=== PATIENT | female | born 1980 | race Caucasian/White ===

== ENCOUNTER 2021-10-06 10:36 | Outpatient (CLI) | payer BC ==
[2021-10-06 12:35] LABS: Hemoglobin 8.3 g/dL (12.0-15.5); Mean Corpuscular HGB CONC 25.7 g/dL (32.0-36.0); Mean Corpuscular Hemoglobin 17.5 pg (27.0-33.0); Mean Corpuscular Volume 68.3 fl (81.6-98.3); Platelet Count 353 10x3/uL (150-450); RBC Distribution Width 17.5 % (11.5-14.5); Red Blood Cell (RBC) Count 4.73 10x6/uL (3.90-5.03); White Blood Cell (WBC) Count 6.7 10x3/uL (3.5-10.5)
[2021-10-06 12:42] LABS: BHCG - Serum Negative (NEGATIVE); Pregs Control Background? CLEAR/WHITE (CLR/WHITE); Pregs Control Bar Appear? YES (CONTROL BAR)
[2021-10-06 23:47] LABS: SARS-CoV-2 PCR by NAA Not Detected (NotDetected)
== END 2021-10-06 10:37 | disposition home or self-care (01) ==
LOC: CSHLAB 10:36
PROVIDERS: ATTEND Obstetrics & Gynecology
DX: Z01.818 Encounter for other preprocedural examination (principal); Z20.822 Contact with and (suspected) exposure to COVID-19; N80.0 Endometriosis of uterus
CPT/HCPCS: 84703; 85027; 86850; 86900; 86901; 93005; 93010; U0003; U0005

== ENCOUNTER 2021-10-11 06:51 | Day surgery (SDC) | payer BC ==
[2021-10-06 11:01] VITALS: BMI 39.9
[2021-10-06 12:35] LABS: Hemoglobin 8.3 g/dL (12.0-15.5); Mean Corpuscular HGB CONC 25.7 g/dL (32.0-36.0); Mean Corpuscular Hemoglobin 17.5 pg (27.0-33.0); Mean Corpuscular Volume 68.3 fl (81.6-98.3); Platelet Count 353 10x3/uL (150-450); RBC Distribution Width 17.5 % (11.5-14.5); Red Blood Cell (RBC) Count 4.73 10x6/uL (3.90-5.03); White Blood Cell (WBC) Count 6.7 10x3/uL (3.5-10.5)
[2021-10-06 12:42] LABS: BHCG - Serum Negative (NEGATIVE); Pregs Control Background? CLEAR/WHITE (CLR/WHITE); Pregs Control Bar Appear? YES (CONTROL BAR)
[2021-10-06 23:47] LABS: SARS-CoV-2 PCR by NAA Not Detected (NotDetected)
[2021-10-11] MEDS ORDERED: Lidocaine 1% MPF 2 ML VIAL ONE (07:40)
[2021-10-11] MEDS ORDERED: Famotidine/PF 20 mg/2ml Vial ONE (07:51)
[2021-10-11] MEDS ORDERED: CeleCOXIB 100 MG CAP ONE (07:51)
[2021-10-11] MEDS ORDERED: ePHEDrine Sulfate 50 MG/10 ML VIAL ONE (09:05)
[2021-10-11] MEDS ORDERED: PHENYLEPHRINE-NS 100 MCG/ML 10 ML SYRINGE ONE (09:05)
[2021-10-11] MEDS ORDERED: Midazolam HCl 2 mg/2 ml Vial ONE ×2 (09:05→09:30)
[2021-10-11] MEDS ORDERED: PROPOFOL 200 MG/20 ML VIAL ONE (09:05)
[2021-10-11] MEDS ORDERED: Ketorolac Tromethamine 30 MG/ML VIAL ONE (09:05)
[2021-10-11] MEDS ORDERED: Fentanyl 250 MCG/5 ML VIAL ONE (09:05)
[2021-10-11] MEDS ORDERED: Ondansetron PF 4 MG/2 ML Vial ONE (09:05)
[2021-10-11] MEDS ORDERED: Rocuronium Bromide 10 MG/ML (10ML VIAL) ONE (09:05)
[2021-10-11] MEDS ORDERED: Lidocaine 1% PF 5 ML VIAL ONE (09:05)
[2021-10-11] MEDS ORDERED: Dexamethasone 4 mg/ml Vial ONE (09:05)
[2021-10-11] MEDS ORDERED: Glycopyrrolate 0.2 MG/ML 5 ML SYRINGE ONE (09:05)
[2021-10-11] MEDS ORDERED: EPINEPHrine 1 MG/ML AMP ONE (09:18)
[2021-10-11] MEDS ORDERED: Bupivacaine PF 0.5% 30 ML VIAL ONE (09:18)
[2021-10-11] MEDS ORDERED: ceFAZolin 2 GM/Dextrose 50 ML IVPB ONE (09:32)
[2021-10-11] MEDS ORDERED: Fentanyl 100 MCG/2 ML VIAL ONE (11:29)
[2021-10-11] MEDS ORDERED: HYDROcodone/Acetaminophen 5/325 mg Tablet ONE ×2 (12:22→14:21)
== END 2021-10-11 15:35 | disposition home or self-care (01) ==
LOC: CSHSDC 06:51
PROVIDERS: ATTEND Obstetrics & Gynecology
PROC: 0UT74ZZ Resection of Bilateral Fallopian Tubes, Percutaneous Endoscopic Approach (ICD-10-PCS; principal; 2021-10-11)
PROC: 0UT94ZZ Resection of Uterus, Percutaneous Endoscopic Approach (ICD-10-PCS; principal; 2021-10-11)
PROC: 0UT04ZZ Resection of Right Ovary, Percutaneous Endoscopic Approach (ICD-10-PCS; principal; 2021-10-11)
DX: D25.9 Leiomyoma of uterus, unspecified (principal); N87.9 Dysplasia of cervix uteri, unspecified; N83.8 Other noninflammatory disorders of ovary, fallopian tube and broad ligament; N73.6 Female pelvic peritoneal adhesions (postinfective); M79.7 Fibromyalgia; E78.5 Hyperlipidemia, unspecified; G25.81 Restless legs syndrome; F17.290 Nicotine dependence, other tobacco product, uncomplicated; Z79.899 Other long term (current) drug therapy; Z20.822 Contact with and (suspected) exposure to COVID-19
CPT/HCPCS: 36415; 84703; 85027; 86850; 86900; 86901; 88307; 88311; C1776; J0171; J0690; J1100; J1885; J2250; J2405; J2704; J3010; S0020; S0028; U0003; U0005